=== PATIENT | female | born 1970 | race Hispanic/Latino ===

== ENCOUNTER 2023-12-03 14:17 | Emergency (ER) | payer OTHER ==
[~2023-12-03] VITALS: Ht 170.2 cm; Wt 83.5 kg
[2023-12-03 15:02] VITALS: BP 132/84
== END 2023-12-03 15:03 | disposition home or self-care (01) ==
LOC: ED 14:17
DX: R22.31 Localized swelling, mass and lump, right upper limb (principal); E11.9 Type 2 diabetes mellitus without complications; Z21 Asymptomatic human immunodeficiency virus [HIV] infection status
CPT/HCPCS: 99283